=== PATIENT | female | born 1965 | race Caucasian/White ===

== ENCOUNTER 2017-01-18 08:56 | Outpatient (CLI) | payer OTHER ==
--- NOTE | 2017-01-18 11:05 | RAD ---
SIX VIEWS CERVICAL SPINE: DATE: 01/18/17. HISTORY: Left-sided neck pain which radiates into left shoulder. History of cervical spine fusion 1 year ago . COMPARISON: 12/13/15. FINDINGS: Again noted are postsurgical changes related to anterior cervical fusion of the C6-7 level with ante rior plate and screws transfixing this level. There is also fusion of the C5-6 level. Intradiskal prostheses are seen at the C5-6 and C6-7 levels. Multiple surgical clips are seen anterior to the c ervical spine at the level of postsurgical change. As noted on the prior exam, there are degenerative changes at the C4-5 level with slight narrowing o f the intervertebral disk space and osteophytes seen anteriorly. C1 to the cervicothoracic junction is seen on lateral and swimmer's views of the cervical spine. No fracture or subluxation is identi fied. Flexion and extension views demonstrate no abnormal translational motion. Prevertebral soft tissues are within normal limits. IMPRESSION: 1. Stable postsurgical changes of the cervical spine related to fusion of the C5-6 and C6-7 levels. 2. Degenerative changes at the C4-5 level unchanged from prior study. POS: [facility]
--- NOTE | 2017-01-18 13:25 | MRI ---
MRI CERVICAL SPINE WITH AND WITHOUT CONTRAST: DATE: 01/18/17. HISTORY: A 51-year-old female with left cervical radiculopathy. FINDINGS: No Chiari-I malformation. Vertebral body heights are maintained. Alignment is normal. There are a nterior metallic plate and screws at C6 and C7. There are interbody cages at C5-6 and C6-7. The ce rvical spinal cord is normal in size and signal. Alignment is normal. C1-2: No central stenosis. C2-3: Normal. C3-4: Normal. C4-5: Shallow, broad-based disk-osteophyte complex indents the ventral aspect of the thecal sac, ca using mild central spinal canal stenosis. There is no significant neural foraminal stenosis. C5-6: Apparently successful ankylosis across the disk space. No central or neural foraminal stenos is. C6-7: Broad-based disk-osteophytic bar complex indents the ventral aspect of the thecal sac, causin g mild central spinal canal stenosis. Bilateral uncovertebral joint osteophytes. No right-sided ne ural foraminal stenosis. Mild to moderate left neural foraminal stenosis. C7-T1: Mild broad-based disk-osteophytic bar complex indents the ventral aspect of the thecal sac, causing minimal central spinal canal stenosis. Mild to moderate right neural foraminal stenosis. M oderate left neuroforaminal stenosis. There has been no major interval change since 08/16/15. IMPRESSION: 1. Status post anterior cervical diskectomy and fusion at several levels. 2. No high-grade central spinal canal stenosis at any level. 3. Left neural foraminal stenosis at C7-T1. 4. No interval change since 08/16/15. POS: [facility]
== END 2017-01-18 08:57 | disposition home or self-care (01) ==
LOC: TBSIIMAG 08:56
PROVIDERS: ATTEND Family Medicine
DX: M50.30 Other cervical disc degeneration, unspecified cervical region (principal); M47.812 Spondylosis without myelopathy or radiculopathy, cervical region; Z98.1 Arthrodesis status
CPT/HCPCS: 72050; 72156

== ENCOUNTER 2017-02-20 08:13 | Outpatient (CLI) | payer OTHER ==
--- NOTE | 2017-02-20 10:34 | MRI ---
MRI OF LUMBAR SPINE WITHOUT CONTRAST: Date: 02-20-17 Comparison: 08-16-15 History: Low back pain for years. Bilateral toe numbness, unsteady gait. Lumbar radiculopathy. Technique: Multiplanar, multisequence MR imaging of the lumbar spine is provided without contrast. FINDINGS: The STIR imaging demonstrates focal area of mild osseous marrow edema centered in the region of the pedicle and superior articular facet on the right at L5. In addition, there is mild edematous change within the posterior soft tissues adjacent to the right L5-S1 facet joint. No additional focal area of osseous marrow edema is seen. Assuming five lumbar type vertebral bodies, conus medullaris terminates at the T12-L1 level. T12-L1: Disc space narrowing and disc desiccation noted with anterior osteophyte formation and minim al disc bulge. This causes no significant central canal or neural foraminal stenosis. L1-2: Mild bilateral facet hypertrophy. Intervertebral disc height and signal intensity grossly unre markable with no significant central canal or neural foraminal stenosis. L2-3: Mild bilateral facet hypertrophy. There is minimal disc bulge. Intervertebral disc height and signal intensity is grossly unremarkable. No significant central canal or neural foraminal stenosis noted. L3-4: There is disc space narrowing, disc desiccation, mild disc bulge, and central annular tear. Mi ld bilateral facet hypertrophy, right greater than left. No significant central canal or neural fora lisandra stenosis. L4-5: Mild bilateral facet hypertrophy. Disc space narrowing and disc desiccation noted. No signific ant central canal or neural foraminal stenosis. L5-S1: Disc space narrowing and disc desiccation noted. Bilateral facet hypertrophy noted, primarily right sided. There is a mild to moderate degree of right sided neural foraminal stenosis, stable. M ild right lateral recess stenosis noted, stable. No left neural foraminal stenosis. Imaged retroperitoneal structures appear grossly unremarkable. IMPRESSION: 1. Multilevel degenerative change with areas of central canal and neural foraminal stenosis as detai led above, relatively mild and unchanged. There is new osseous marrow edema in the region of the L5 pedicle and superior articular facet on the right with mild edematous change in the soft tissues pos terior to this. Etiologies uncertain. This may be on the basis of prior facet joint injection and fa cet hypertrophy with edematous degenerative changes. Stress reaction or developing unilateral pars d efect cannot be fully excluded. This would be best assessed via CT examination if clinically indicat ed. POS: [facility]
== END 2017-02-20 08:14 | disposition home or self-care (01) ==
LOC: TBSIIMAG 08:13
PROVIDERS: ATTEND Neurological Surgery
DX: M47.26 Other spondylosis with radiculopathy, lumbar region (principal); M48.061 Spinal stenosis, lumbar region without neurogenic claudication; R60.0 Localized edema
CPT/HCPCS: 72148